=== PATIENT | female | born 1995 | race Caucasian/White ===

== ENCOUNTER 2019-03-15 15:55 | Inpatient (IN) | payer OTHER ==
[2019-03-15 19:09] LABS: WHITE BLOOD COUNT 6.2 10^3/ul (4.8-10.8)
[2019-03-15 19:09] LABS: ADD MAN DIFF? NO; HEMATOCRIT 35.2 % (37.0-47.0)
[2019-03-15 19:10] LABS: BASOPHILS % 0.8 % (0.0-2.0); EOSINOPHILS % 5.5 % (0.0-7.0); LYMPHOCYTES # 1.9 10^3/ul (0.8-2.9); MEAN CORPUSCULAR HGB CONC 34.1 g/dl (32.0-37.0); MEAN CORPUSCULAR VOLUME 85.9 fl (82.0-101.0); MEAN PLATELET VOLUME 10.6 fl (7.4-10.4); MONOCYTES % 9.7 % (0.0-11.0); NEUTROPHIL # 3.3 10^3/ul (1.6-7.5); NEUTROPHILS % 53.7 % (39.0-77.0); PLATELET COUNT 296 10^3/UL (140-415); RED CELL DISTRIBUTION WIDTH 13.2 % (11.5-14.5)
[2019-03-15 19:11] LABS: BASOPHIL # 0.1 10^3/ul (0.0-0.1); MEAN CORPUSCULAR HEMOGLOBIN 29.3 pg (29.0-33.0); MONOCYTE # 0.6 10^3/ul (0.3-0.9)
[2019-03-15 19:23] LABS: INR 1.06; PARTIAL THROMBOPLASTIN TIME 29.5 Sec (23.0-35.0); PROTIME 13.9 Sec (11.9-14.9); PT RATIO 1.1
[2019-03-15] MEDS ORDERED: ACETAMINOPHEN 325 MG TAB PO ×2 (19:30→22:00)
[2019-03-15] MEDS ORDERED: ONDANSETRON 4 MG INJ IV (19:30)
[2019-03-15] MEDS ORDERED: morphine 4 MG/ML VIAL (19:54)
[2019-03-15] MEDS ORDERED: ONDANSETRON 4 MG INJ (19:54)
[2019-03-15] MEDS: morphine 4 MG/ML VIAL IV (19:56)
[2019-03-15] MEDS: ONDANSETRON 4 MG INJ IV (19:56)
[2019-03-15 20:04] LABS: ANION GAP 8 (5-13); BLOOD UREA NITROGEN 7 mg/dl (7-20); CARBON DIOXIDE 25 mmol/L (21-31); CHLORIDE 109 mmol/L (97-110); CREATININE 0.66 mg/dl (0.44-1.00); Estimated GFR > 60 mL/min (>60); GLUCOSE 79 mg/dl (70-220); POTASSIUM 3.6 mmol/L (3.5-5.1); SODIUM 142 mmol/L (135-144)
[2019-03-15 20:05] LABS: ALANINE AMINOTRANSFERASE 30 IU/L (13-69); ALBUMIN 3.8 g/dl (3.3-4.9); ALBUMIN/GLOBULIN RATIO 1.31; ALKALINE PHOSPHATASE 82 IU/L (42-121); ASPARTATE AMINO TRANSFERASE 29 IU/L (15-46); BILIRUBIN,INDIRECT 0.5 mg/dl (0-1.1); BILIRUBIN,TOTAL 0.5 mg/dl (0.2-1.3); CALCIUM 9.1 mg/dl (8.4-10.2); LIPASE 62 U/L (23-300); TOTAL PROTEIN 6.7 g/dl (6.1-8.1); TROPONIN-I < 0.012 ng/ml (0.000-0.120)
[2019-03-15 21:11] LABS: ADD UMIC YES; UR ASCORBIC ACID NEGATIVE (NEGATIVE); UR BILIRUBIN (Dip) NEGATIVE (NEGATIVE); UR BLOOD (Dip) NEGATIVE (NEGATIVE); UR CLARITY CLOUDY (CLEAR); UR COLOR YELLOW (YELLOW); UR GLUCOSE (Dip) NEGATIVE (NEGATIVE); UR KETONES (Dip) TRACE mg/dL (NEGATIVE); UR LEUKOCYTE ESTERASE (Dip) 1+ Leu/ul (NEGATIVE); UR MUCUS MANY /HPF (NONE SEEN); UR NITRITE (Dip) NEGATIVE (NEGATIVE); UR RBC 4 /HPF (0-5); UR SPECIFIC GRAVITY (Dip) 1.016 (1.003-1.030); UR SQUAMOUS EPITHELIAL CELL MANY /HPF (FEW); UR TOTAL PROTEIN (Dip) NEGATIVE (NEGATIVE); UR UROBILINOGEN (Dip) NEGATIVE (NEGATIVE); UR WBC 7 /HPF (0-5)
[2019-03-15] MEDS: CEFTRIAXONE 1 GM/50 ML (PMX) 50 ML IVPB (22:18)
[2019-03-15] MEDS: DEXTROSE 5%-0.45% NACL 1,000 ML IV (22:18)
[2019-03-16] MEDS ORDERED: PANTOPRAZOLE 40 MG INJ IV (06:00)
[2019-03-16 06:07] LABS: ADD MAN DIFF? NO
[2019-03-16 06:10] LABS: WHITE BLOOD COUNT 6.2 10^3/ul (4.8-10.8)
[2019-03-16 06:10] LABS: BASOPHIL # 0.1 10^3/ul (0.0-0.1); EOSINOPHILS # 0.4 10^3/ul (0.0-0.5); EOSINOPHILS % 6.3 % (0.0-7.0); HEMATOCRIT 35.2 % (37.0-47.0); HEMOGLOBIN 11.6 g/dl (12.0-16.0); LYMPHOCYTES # 2.3 10^3/ul (0.8-2.9); LYMPHOCYTES % 37.2 % (15.0-51.0); MEAN PLATELET VOLUME 10.8 fl (7.4-10.4); MONOCYTE # 0.6 10^3/ul (0.3-0.9); MONOCYTES % 9.2 % (0.0-11.0); NEUTROPHIL # 2.9 10^3/ul (1.6-7.5); PLATELET COUNT 281 10^3/UL (140-415); RED CELL DISTRIBUTION WIDTH 13.3 % (11.5-14.5)
[2019-03-16 06:50] LABS: ANION GAP 7 (5-13); BLOOD UREA NITROGEN 5 mg/dl (7-20); CALCIUM 8.8 mg/dl (8.4-10.2); CARBON DIOXIDE 25 mmol/L (21-31); CHLORIDE 109 mmol/L (97-110); Estimated GFR > 60 mL/min (>60); GLUCOSE 79 mg/dl (70-220); POTASSIUM 3.4 mmol/L (3.5-5.1); SODIUM 141 mmol/L (135-144)
[2019-03-16] MEDS ORDERED: INDOMETHACIN 50 MG SUPP PR (07:30)
[2019-03-16] MEDS: FAMOTIDINE 20 MG INJ IV ×3 (08:38→22:17)
[2019-03-16] MEDS: DEXTROSE 5%-0.45% NACL 1,000 ML IV ×2 (12:18→15:52)
[2019-03-16] MEDS: POTASSIUM CHLORIDE (SR) 20 MEQ TAB PO (13:56)
[2019-03-16] MEDS ORDERED: POTASSIUM CHLORIDE 100 ML IVPB (14:00)
[2019-03-16] MEDS: morphine 2 MG INJ IV (18:00)
[2019-03-16] MEDS: QUETIAPINE 25 MG TAB PO (21:00)
[2019-03-16] MEDS: IOHEXOL 14.3 MG(I)/ML (ADULT) BTL PO (21:35)
[2019-03-16] MEDS: CEFTRIAXONE 1 GM/50 ML (PMX) 50 ML IVPB (22:18)
[2019-03-16] MEDS ORDERED: IOHEXOL 300MG/ML 150 ML BTL (23:37)
[2019-03-16] MEDS ORDERED: SOD CHLORIDE 0.9% 100 ML (23:37)
[2019-03-17] MEDS: DEXTROSE 5%-0.45% NACL 1,000 ML IV ×2 (01:44→09:07)
[2019-03-17] MEDS: FAMOTIDINE 20 MG INJ IV (09:07)
[2019-03-17] MEDS: morphine 2 MG INJ IV (09:22)
[2019-03-17] MEDS: ONDANSETRON 4 MG INJ IV (09:41)
[2019-03-17 10:41] LABS: ADD MAN DIFF? NO
[2019-03-17 10:42] LABS: BASOPHIL # 0.1 10^3/ul (0.0-0.1); BASOPHILS % 1.1 % (0.0-2.0); EOSINOPHILS # 0.2 10^3/ul (0.0-0.5); EOSINOPHILS % 4.1 % (0.0-7.0); HEMOGLOBIN 12.5 g/dl (12.0-16.0); LYMPHOCYTES # 1.6 10^3/ul (0.8-2.9); LYMPHOCYTES % 28.8 % (15.0-51.0); MEAN CORPUSCULAR HEMOGLOBIN 29.1 pg (29.0-33.0); MEAN CORPUSCULAR HGB CONC 33.8 g/dl (32.0-37.0); MEAN PLATELET VOLUME 10.1 fl (7.4-10.4); MONOCYTE # 0.5 10^3/ul (0.3-0.9); MONOCYTES % 8.6 % (0.0-11.0); NEUTROPHIL # 3.2 10^3/ul (1.6-7.5); NEUTROPHILS % 57.2 % (39.0-77.0); PLATELET COUNT 305 10^3/UL (140-415); RED CELL DISTRIBUTION WIDTH 12.9 % (11.5-14.5)
[2019-03-17 10:42] LABS: WHITE BLOOD COUNT 5.6 10^3/ul (4.8-10.8)
[2019-03-17 11:02] LABS: ANION GAP 9 (5-13); CALCIUM 9.2 mg/dl (8.4-10.2); CARBON DIOXIDE 24 mmol/L (21-31); CHLORIDE 106 mmol/L (97-110); CREATININE 0.55 mg/dl (0.44-1.00); Estimated GFR > 60 mL/min (>60); GLUCOSE 92 mg/dl (70-220); POTASSIUM 3.4 mmol/L (3.5-5.1); SODIUM 139 mmol/L (135-144)
[2019-03-17 11:07] LABS: BLOOD UREA NITROGEN < 2 mg/dl (7-20)
[2019-03-17] MEDS: POTASSIUM CHLORIDE 20 MEQ POWDER FOR ORAL SOLN PO (11:42)
== END 2019-03-17 12:30 | disposition home or self-care (01) | DRG 920 ==
LOC: E/R 15:55 → 2NE 19:25
DX: K91.872 Postprocedural seroma of a digestive system organ or structure following a digestive system procedure (principal); N39.0 Urinary tract infection, site not specified; F20.9 Schizophrenia, unspecified; D64.9 Anemia, unspecified; M54.9 Dorsalgia, unspecified; Z90.49 Acquired absence of other specified parts of digestive tract; Y83.6 Removal of other organ (partial) (total) as the cause of abnormal reaction of the patient, or of later complication, without mention of misadventure at the time of the procedure
CPT/HCPCS: 36415; 74177; 78226; 80048; 80053; 81001; 81025; 82652; 83690; 84484; 85025; 85610; 85730; 93005; 99285-25